=== PATIENT | female | born 1995 | race African-American/Black ===

== ENCOUNTER 2021-07-01 21:22 | Emergency (ER) | payer SELFPAY ==
[~2021-07-01] VITALS: Ht 157.5 cm; Wt 97.5 kg
[2021-07-01] MEDS ORDERED: ACETAMINOPHEN 325 MG TAB PO ONE (21:30)
== END 2021-07-01 22:20 | disposition home or self-care (01) ==
LOC: ER 21:45
DX: R50.9 Fever, unspecified (principal); J10.1 Influenza due to other identified influenza virus with other respiratory manifestations; Z20.822 Contact with and (suspected) exposure to COVID-19
CPT/HCPCS: 99282; U0002